=== PATIENT | male | born 1985 | race Caucasian/White ===

== ENCOUNTER 2019-10-08 01:05 | Emergency (ER) | payer OTHER ==
[~2019-10-08] VITALS: Ht 172.7 cm; Wt 90.7 kg
[~2019-10-08 01:05] MED LIST: SEROQUEL 50 MG50 M1; TRAZODONE 150150 M1 PO
[2019-10-08 01:06] VITALS: BP 158/99
== END 2019-10-08 01:30 | disposition home or self-care (01) ==
LOC: ER 01:05
DX: F41.9 Anxiety disorder, unspecified (principal); Z76.0 Encounter for issue of repeat prescription; F31.9 Bipolar disorder, unspecified; F20.9 Schizophrenia, unspecified; F17.210 Nicotine dependence, cigarettes, uncomplicated; Z86.73 Personal history of transient ischemic attack (TIA), and cerebral infarction without residual deficits; Z79.899 Other long term (current) drug therapy

== ENCOUNTER 2020-02-19 04:41 | Emergency (ER) | payer OTHER ==
[~2020-02-19] VITALS: Ht 172.7 cm; Wt 82.6 kg
[2020-02-19] MEDS ORDERED: ZYPREXA 5 MG TAB5 MG PO (04:53)
[2020-02-19] MEDS ORDERED: CLONAZEPAM 0.50.5 M1 PO (04:54)
[2020-02-19] MEDS ORDERED: PAXIL20 MG PO (04:54)
[2020-02-19 06:23] VITALS: BP 121/87
== END 2020-02-19 06:28 | disposition home or self-care (01) ==
LOC: ER 04:41
DX: Z00.00 Encounter for general adult medical examination without abnormal findings (principal); Z79.899 Other long term (current) drug therapy